=== PATIENT | female | born 1930 | race Caucasian/White ===

== ENCOUNTER 2018-04-19 15:53 | Emergency (ER) | payer MEDICARE ==
[2018-04-19 16:01] VITALS: TEMP 98.1
[2018-04-19] MEDS ORDERED: SODIUM CHLORIDE 0.9% 1,000 ML IV STA (17:06)
[2018-04-19] MEDS ORDERED: RX INFO: IV CONTRAST WAS GIVEN 1 EACH MISC MISCELLANE PRN (17:06)
[2018-04-19] MEDS ORDERED: MORPHINE SULFATE 4 MG/ML SYRINGE IV STA ×2 (17:06→18:39)
--- NOTE | 2018-04-19 17:09 | ED ---
General Adult HPI - General Chief complaint: Recheck/Abnormal Lab/Rx Stated complaint: Fell Time Seen by Provider: 04/19/18 16:25 Source: patient, family, RN notes reviewed Mode of arrival: ambulatory Limitations: no limitations - History of Present Illness Initial comments: Patient is a pleasant 88-year-old female presenting to the emergency department with rib discomfort. Patient states around for the morning she was going to the bathroom and fell. Family did hear her and patient was only on the ground for a few minutes. Patient complains of discomfort only of the left rib region. Patient denies any dyspnea. Discomfort does increase with deep breaths and position changes. No head injury or loss of consciousness. No neck or back pain. No abdominal pain. No syncope. - Related Data Home Medications Medication Instructions Recorded Confirmed ALPRAZolam [Xanax] 0.5 mg PO HS PRN 04/19/18 04/19/18 Ascorbic Acid [Vitamin C] 500 mg PO DAILY 04/19/18 04/19/18 Aspirin [Adult Low Dose Aspirin EC] 81 mg PO DAILY 04/19/18 04/19/18 Atorvastatin Calcium [Lipitor] 10 mg PO DAILY 04/19/18 04/19/18 Calcium Carbonate [Calcium] 600 mg PO DAILY 04/19/18 04/19/18 Cetirizine HCl [Zyrtec] 10 mg PO DAILY 04/19/18 04/19/18 Cholecalciferol [Vitamin D3] 1,000 unit PO DAILY 04/19/18 04/19/18 Cyanocobalamin [Vitamin B-12] 500 mcg PO DAILY 04/19/18 04/19/18 Enalapril Maleate [Vasotec] 20 mg PO DAILY 04/19/18 04/19/18 Glucosamine Sulfate 1,000 mg PO BID 04/19/18 04/19/18 Hydrocodone/Acetaminophen [[place] 1 tab PO Q4HR PRN 04/19/18 04/19/18 5-325] Lansoprazole [Prevacid] 30 mg PO DAILY 04/19/18 04/19/18 Levothyroxine Sodium [Synthroid] 75 mcg PO DAILY 04/19/18 04/19/18 Magnesium 200 mg PO DAILY 04/19/18 04/19/18 Multivitamins, Thera [Multivitamin 1 tab PO DAILY 04/19/18 04/19/18 (formulary)] Sertraline HCl [Zoloft] 50 mg PO DAILY 04/19/18 04/19/18 Tart Gunter Extract 1 tab PO TID 04/19/18 04/19/18 Zinc 50 mg PO DAILY 04/19/18 04/19/18 Previous Rx's Medication Instructions Recorded traMADol HCl [Ultram] 50 mg PO Q6H PRN #12 tab 04/19/18 Allergies Allergy/AdvReac Type Severity Reaction Status Date / Time pollen extracts Allergy Unknown Verified 04/19/18 16:30 Review of Systems ROS Statement: Those systems with pertinent positive or pertinent negative responses have been documented in the HPI. ROS Other: All systems not noted in ROS Statement are negative. Constitutional: Denies: fever Eyes: Denies: eye pain ENT: Denies: ear pain Respiratory: Denies: cough, dyspnea Cardiovascular: Denies: palpitations Endocrine: Denies: fatigue Gastrointestinal: Denies: abdominal pain, vomiting Genitourinary: Denies: dysuria Musculoskeletal: Denies: back pain Skin: Denies: rash Neurological: Denies: weakness Past Medical History Past Medical History: Hyperlipidemia, Hypertension, Osteoarthritis (OA), Thyroid Disorder History of Any Multi-Drug Resistant Organisms: None Reported Past Surgical History: Cholecystectomy, Hysterectomy Additional Past Surgical History / Comment(s): Rotator cuff, left knee replacement Past Psychological History: Anxiety Smoking Status: Never smoker Past Alcohol Use History: Occasional Past Drug Use History: None Reported General Exam Limitations: no limitations General appearance: alert, in no apparent distress Head exam: Present: atraumatic, normocephalic Eye exam: Present: normal appearance, PERRL Neck exam: Present: normal inspection. Absent: tenderness Respiratory exam: Present: normal lung sounds bilaterally Cardiovascular Exam: Present: regular rate, normal rhythm GI/Abdominal exam: Present: soft. Absent: tenderness Extremities exam: Present: normal inspection, full ROM. Absent: tenderness Back exam: Present: other (Left posterior lateral ribs above the CVA region with tenderness and mild ecchymosis) Neurological exam: Present: alert, oriented X3. Absent: motor sensory deficit Psychiatric exam: Present: normal affect, normal mood Skin exam: Present: normal color Course Vital Signs 04/19/18 04/19/18 15:55 17:24 Temperature 98.1 F Pulse Rate 72 71 Respiratory 16 18 Rate Blood Pressure 132/71 145/65 O2 Sat by Pulse 95 97 Oximetry - Reevaluation(s) Reevaluation #1: 04/19/18 17:07 cAce was discussed with Dr. Faulkner, who does request computed tomography scan of the chest. Medical Decision Making - Medical Decision Making Patient reevaluated and resting comfortably in bed. Patient and family updated on results and plan. Opioid written consent obtained. - Lab Data Result diagrams: 04/19/18 17:00 04/19/18 17:00 Lab Results 04/19/18 04/19/18 04/19/18 Range/Units 17:00 17:00 17:00 WBC 9.4 (3.8-10.6) k/uL RBC 4.22 (3.80-5.40) m/uL Hgb 14.3 (11.4-16.0) gm/dL Hct 45.6 (34.0-46.0) % MCV 108.1 H (80.0-100.0) fL MCH 33.8 (25.0-35.0) pg MCHC 31.3 (31.0-37.0) g/dL RDW 11.8 (11.5-15.5) % Plt Count 291 (150-450) k/uL Neutrophils % 75 % Lymphocytes % 12 % Monocytes % 4 % Eosinophils % 6 % Basophils % 1 % Neutrophils # 7.0 (1.3-7.7) k/uL Lymphocytes # 1.1 (1.0-4.8) k/uL Monocytes # 0.4 (0-1.0) k/uL Eosinophils # 0.6 (0-0.7) k/uL Basophils # 0.1 (0-0.2) k/uL Macrocytosis Moderate PT 10.1 (9.0-12.0) sec INR 1.0 (<1.2) APTT 29.5 (22.0-30.0) sec Sodium 133 L (137-145) mmol/L Potassium 5.1 (3.5-5.1) mmol/L Chloride 102 (98-107) mmol/L Carbon Dioxide 17 L (22-30) mmol/L Anion Gap 14 mmol/L BUN 14 (7-17) mg/dL Creatinine 0.97 (0.52-1.04) mg/dL Est GFR (CKD-EPI)AfAm 61 (>60 ml/min/1.73 sqM) Est GFR (CKD-EPI)NonAf 53 (>60 ml/min/1.73 sqM) Glucose 87 (74-99) mg/dL Calcium 9.4 (8.4-10.2) mg/dL Total Bilirubin 0.9 (0.2-1.3) mg/dL AST 89 H (14-36) U/L ALT 51 (9-52) U/L Alkaline Phosphatase 102 (38-126) U/L Total Protein 7.6 (6.3-8.2) g/dL Albumin 4.3 (3.5-5.0) g/dL - Radiology Data Radiology results: image reviewed (Reviewed chest x-ray from urgent care with questionable rib fracture #9 and small effusion. Computed tomography scan of the chest shows nondisplaced left posterior rib fractures. Minimal atelectasis lung bases. No pneumothorax. No hemothorax.) Disposition Clinical Impression: Rib fracture Disposition: HOME SELF-CARE Condition: Stable Instructions: Rib Fracture (ED) Additional Instructions: Please follow-up with primary care physician in the next couple days for recheck. Return for difficulty breathing, fevers, increased pain, worsening or changing symptoms or other concerns. Prescriptions: traMADol HCl [Ultram] 50 mg PO Q6H PRN #12 tab PRN Reason: Pain/Discomfort Is patient prescribed a controlled substance at d/c from ED?: Yes When asked, does pt state using other controlled substances?: No If prescribed controlled substance>3 days was MAPS reviewed?: Prescribed <3 Days If opioid is for acute pain is fill amount 7 days or less?: Yes If Rx opioid, was Start Talking consent form obtained?: Yes Referrals: Joselin Keith III, MD [STAFF PHYSICIAN] - 1-2 days Time of Disposition: 18:39
[2018-04-19 17:25] VITALS: RESP 18
[2018-04-19 17:26] LABS: Albumin 4.3 g/dL (3.5-5.0); Calcium 9.4 mg/dL (8.4-10.2); Potassium 5.1 mmol/L (3.5-5.1); Total Bilirubin 0.9 mg/dL (0.2-1.3); Total Protein 7.6 g/dL (6.3-8.2)
[2018-04-19 17:27] LABS: Basophils # (A) 0.1 k/uL (0-0.2); Basophils % (A) 1 %; Eosinophils # (A) 0.6 k/uL (0-0.7); Eosinophils % (A) 6 %; HCT 45.6 % (34.0-46.0); HGB 14.3 gm/dL (11.4-16.0); Lymphocytes # (A) 1.1 k/uL (1.0-4.8); Lymphocytes % (A) 12 %; MCH 33.8 pg (25.0-35.0); MCHC 31.3 g/dL (31.0-37.0); MCV 108.1 fL (80.0-100.0); Macrocytosis Moderate; Mean Platelet Volume 7.5; Monocytes # (A) 0.4 k/uL (0-1.0); Monocytes % (A) 4 %; Neutrophils % (A) 75 %; Platelet Count 291 k/uL (150-450); RBC 4.22 m/uL (3.80-5.40); RDW 11.8 % (11.5-15.5); WBC 9.4 k/uL (3.8-10.6)
[2018-04-19 17:31] LABS: Partial Thromboplastin Time 29.5 sec (22.0-30.0); Prothrombin Time 10.1 sec (9.0-12.0)
--- NOTE | 2018-04-19 18:27 | CT ---
EXAMINATION TYPE: CT chest w con DATE OF EXAM: 04/19/2018 COMPARISON: None HISTORY: Fall today. Left sided rib injury. CT DLP: 246.4 mGycm Automated exposure control for dose reduction was used. CONTRAST: CT scan of the chest is performed with IV Contrast, patient injected with 80 mL of Isovue 300. FINDINGS: There is some minimal linear density at the lung bases consistent with scarring and subsegmental atel ectasis. There is no pleural effusion or pneumothorax. The thoracic aorta is intact. There is no medi astinal adenopathy. There are no hilar masses. There are nondisplaced fractures of the posterior left 10th and 11th ribs. I see no compression fracture in the thoracic spine. There are spondylotic dean es throughout the thoracic spine. . IMPRESSION: Nondisplaced left lower posterior rib fractures. Minimal atelectasis at the lung bases .
[2018-04-19 19:13] VITALS: BP 135/70; PULSE 60
== END 2018-04-19 19:24 | disposition home or self-care (01) ==
LOC: EC 15:53
DX: S22.32XA Fracture of one rib, left side, initial encounter for closed fracture (principal); J91.8 Pleural effusion in other conditions classified elsewhere; J90 Pleural effusion, not elsewhere classified; J98.11 Atelectasis; E78.5 Hyperlipidemia, unspecified; I10 Essential (primary) hypertension; M19.90 Unspecified osteoarthritis, unspecified site; E07.9 Disorder of thyroid, unspecified; F41.9 Anxiety disorder, unspecified; Z91.048 Other nonmedicinal substance allergy status; Z79.82 Long term (current) use of aspirin; Z79.899 Other long term (current) drug therapy; W01.198A Fall on same level from slipping, tripping and stumbling with subsequent striking against other object, initial encounter; Y93.89 Activity, other specified; Y92.002 Bathroom of unspecified non-institutional (private) residence as the place of occurrence of the external cause
CPT/HCPCS: 36415; 80053; 85025; 85610; 85730; 71260; 99284; 96374; 96376; 96361 ×2; J2270; Q9967